=== PATIENT | female | born 1950 | race Caucasian/White ===

== ENCOUNTER → 2016-12-03 | Outpatient (CLI) | payer OTHER ==
[~2016-12-03] VITALS: Ht 165.1 cm; Wt 77.0 kg
[~2016-12-03] MED LIST: ASCORBIC ACID500 M3 PO; ASPIR-LOW81 MG PO; CALCIUM 600 +1 EAC1 PO; CALCIUM W/VIT1 EACH; CEREFOLIN TABL1 EACH PO; FISH OIL CONC1 EACH PO; HTN PO; LEVOTHROID100 MCG PO; LISINOPRIL-HCT1 EAC3 PO; MIACALCIN4 ML NS; MULTIVITAMIN1 EAC1; NORCO 5/3251 TABLET PO; PRAVACHOL20 MG PO; PRAVACHOL40 MG PO; PRESERVISION T1 EACH PO; RECLAST5 MG/100 M IV; ST. JOSEPH ASPI81 MG PO; SYNTHROID75 MCG PO; VALSARTAN-HCTZ1 EAC1 PO; VITAMIN D1000 INTUN PO
[2016-12-03 15:22] VITALS: BP 124/58
== END | disposition home or self-care (01) ==
LOC: IVINF 15:14
DX: M81.0 Age-related osteoporosis without current pathological fracture (principal)
CPT/HCPCS: 96365; J3489